=== PATIENT | female | born 1990 | race African-American/Black ===

== ENCOUNTER 2017-06-04 04:06 | Inpatient (IN) ==
[2017-06-04 04:56] LABS: Apearance,Urine Slightly Hazy (Clear); Bilirubin,Urine Negative (Negative); Blood, Urine Negative (Negative); Glucose,Urine (UA) Negative (Negative); Ketones,Urine Negative (Negative); Mucus,Urine Occasional /LPF (Occasional); Nitrite,Urine Negative (Negative); Protein,Urine Negative; RBC,Urine <1 /HPF (0-4); Squamous Epithelial Cell,Urine Occasional /HPF (0-10); Urine Color Straw (Yellow); Urine Specific Gravity 1.009 (1.001-1.035); Urine Urobilinogen < 2.0 EU/DL (0.2-1.0); WBC,Urine 1 /HPF (0-6)
[2017-06-04] MEDS ORDERED: LACTATED RINGERS 1,000 ML IV SCH ×2 (05:30→07:00)
[2017-06-04] MEDS ORDERED: BUTORPHANOL 2 MG/ML VIAL IV ONE (06:00)
[2017-06-04] MEDS ORDERED: ONDANSETRON 4 MG/2 ML VIAL IV ONE (06:00)
[2017-06-04 06:04] LABS: Eosinophils # 0.1 10*3/uL (0.0-0.87); Eosinophils % 0.8 % (0.00-10.9); Hemoglobin 10.8 GM/DL (12.0-16.0); Mean Corpuscular Hemoglobin 28 PG (27-34); Red Blood Count 3.93 MC/CUMM (3.8-5.5)
[2017-06-04 06:17] LABS: Basophils % 0.3 % (0.0-0.8); Hematocrit 32.1 VOL% (35.7-47.0); Immature Granulocytes % 0.7 %; Immature Granulocytes Absolute 0.04 #; Lymphocytes % 33.4 % (21.3-54.2); Mean Corpuscular HGB Conc 33.6 GM/DL (32-36); Mean Corpuscular Volume 81.7 FL (87-102); Mean Platelet Volume 14.6 FL (9.6-12.0); Monocytes # 0.6 10*3/uL (0.11-0.8); Monocytes % 9.9 % (1.7-12.7); Neutrophils # 3.3 10*3/uL (1.4-7.4); Neutrophils % 54.9 % (38.7-73.9); Red Cell Distribution Width 14.7 % (9.3-17.3)
[2017-06-04 06:20] LABS: Platelet Count 99 T/CUMM (130-400)
[2017-06-04 06:29] LABS: Platelet Estimate Decreased
[2017-06-04] MEDS ORDERED: MEPERIDINE 50 MG/1 ML VIAL IV PRN (06:34)
[2017-06-04] MEDS ORDERED: ONDANSETRON 4 MG/2 ML VIAL IV PRN ×2 (06:34→11:01)
[2017-06-04] MEDS ORDERED: ePHEDrine 50 MG/ML AMP IV PRN (06:35)
[2017-06-04] MEDS ORDERED: CITRIC ACID/SODIUM CITRATE 30 ML UDCUP PO ONE (06:35)
[2017-06-04] MEDS ORDERED: FAMOTIDINE 20 MG/2 ML VIAL IV ONE (06:35)
[2017-06-04] MEDS ORDERED: fentaNYL 2 MCG/ROPIV 0.2% EPID 150 ML EPIDURAL SCH (07:00)
[2017-06-04 07:14] LABS: Basophils % 0.2 % (0.0-0.8); Eosinophils # 0.1 10*3/uL (0.0-0.87); Eosinophils % 0.6 % (0.00-10.9); Hematocrit 33.2 VOL% (35.7-47.0); Hemoglobin 11.1 GM/DL (12.0-16.0); Immature Granulocytes % 0.6 %; Immature Granulocytes Absolute 0.05 #; Lymphocytes # 3.3 10*3/uL (1.4-4.0); Lymphocytes % 39.2 % (21.3-54.2); Mean Corpuscular HGB Conc 33.4 GM/DL (32-36); Mean Corpuscular Hemoglobin 28 PG (27-34); Mean Corpuscular Volume 82.2 FL (87-102); Mean Platelet Volume 13.9 FL (9.6-12.0); Monocytes # 0.9 10*3/uL (0.11-0.8); Monocytes % 10.9 % (1.7-12.7); Neutrophils # 4.1 10*3/uL (1.4-7.4); Neutrophils % 48.5 % (38.7-73.9); Platelet Count 104 T/CUMM (130-400); Red Blood Count 4.04 MC/CUMM (3.8-5.5); Red Cell Distribution Width 14.8 % (9.3-17.3); White Blood Count 8.4 T/CUMM (4-12)
[2017-06-04] MEDS ORDERED: BUTORPHANOL 2 MG/ML VIAL IV PRN (07:34)
[2017-06-04] MEDS ORDERED: OXYTOCIN/LR 20 UNIT/1,000 ML BAG IV SCH (09:30)
[2017-06-04] MEDS ORDERED: miSOPROStol 200 MCG TABLET ONE (09:58)
[2017-06-04] MEDS ORDERED: LIDOCAINE 1% 50 ML VIAL ONE (09:58)
[2017-06-04] MEDS ORDERED: METHYLERGONOVINE 0.2 MG/1 ML AMP ONE (09:59)
[2017-06-04] MEDS ORDERED: BISACODYL 10 MG SUPP RECTAL PRN (11:01)
[2017-06-04] MEDS ORDERED: WITCH HAZEL PADS 100/JAR TOP PRN (11:01)
[2017-06-04] MEDS ORDERED: RHO(D) IMMUNE GLOBULIN 300 MCG SYRINGE IM ONE (11:01)
[2017-06-04] MEDS ORDERED: OXYTOCIN/LR 20 UNIT/1,000 ML BAG IV ONE (11:01)
[2017-06-04] MEDS ORDERED: DIPH/TET/ACEL PERT BOOSTER VACCINE 0.5 ML VIAL IM ONE (11:01)
[2017-06-04] MEDS ORDERED: MEASLES/MUMPS/RUBELLA VACCINE 0.5 ML VIAL SUBCUT ONE (11:01)
[2017-06-04] MEDS ORDERED: BENZOCAINE 20%/MENTHOL 0.5% SPRAY 56 GM CAN TOP PRN (11:01)
[2017-06-04] MEDS ORDERED: HYDROCORTISONE 2.5% RECTAL CREAM 30 GM TUBE TOP PRN (11:01)
[2017-06-04] MEDS ORDERED: ACETAMINOPHEN 325 MG TABLET PO PRN (11:01)
[2017-06-04] MEDS ORDERED: LANOLIN 50% CREAM 0.3 OZ TUBE TOP PRN (11:01)
[2017-06-04] MEDS ORDERED: oxyCODONE/ACETAMINOPHEN 5-325 MG TABLET PO PRN (11:01)
[2017-06-04] MEDS: IBUPROFEN 800 MG TABLET PO PRN (16:12)
[2017-06-04] MEDS: oxyCODONE/ACETAMINOPHEN 5-325 MG TABLET PO PRN (16:13)
[2017-06-04] MEDS: DOCUSATE SODIUM 100 MG CAPSULE PO SCH (20:30)
[2017-06-05 05:46] LABS: Basophils % 0.4 % (0.0-0.8); Eosinophils # 0.1 10*3/uL (0.0-0.87); Eosinophils % 1.1 % (0.00-10.9); Hematocrit 28.2 VOL% (35.7-47.0); Hemoglobin 9.4 GM/DL (12.0-16.0); Immature Granulocytes % 0.5 %; Immature Granulocytes Absolute 0.04 #; Lymphocytes # 2.4 10*3/uL (1.4-4.0); Lymphocytes % 30.2 % (21.3-54.2); Mean Corpuscular HGB Conc 33.3 GM/DL (32-36); Mean Corpuscular Hemoglobin 27 PG (27-34); Mean Corpuscular Volume 82.2 FL (87-102); Monocytes # 0.8 10*3/uL (0.11-0.8); Monocytes % 9.4 % (1.7-12.7); Neutrophils # 4.7 10*3/uL (1.4-7.4); Neutrophils % 58.4 % (38.7-73.9); Platelet Count 75 T/CUMM (130-400); Red Blood Count 3.43 MC/CUMM (3.8-5.5); Red Cell Distribution Width 15.1 % (9.3-17.3)
[2017-06-05 06:18] LABS: Giant Platelets Few; Hypochromasia 1+; Lymphocytes 40 % (20-55); Ovalocytes Slight; Platelet Estimate Decreased; Segmented Neutrophils 55 % (50-85); Total Cells Counted 100
[2017-06-05] MEDS: IBUPROFEN 800 MG TABLET PO PRN (09:07)
[2017-06-05] MEDS: DOCUSATE SODIUM 100 MG CAPSULE PO SCH ×2 (09:07→21:33)
[2017-06-05] MEDS: oxyCODONE/ACETAMINOPHEN 5-325 MG TABLET PO PRN (09:08)
[2017-06-06 07:09] VITALS: BP 125/75
[2017-06-06] MEDS: DOCUSATE SODIUM 100 MG CAPSULE PO SCH (09:26)
[2017-06-06] MEDS: IBUPROFEN 800 MG TABLET PO PRN (09:28)
== END 2017-06-06 12:20 | disposition home or self-care (01) | DRG 775 ==
LOC: N.LDOUT 04:06 → N.LD 04:15 → N.OB 14:37
PROVIDERS: ADMIT Obstetrics & Gynecology; ATTEND Obstetrics & Gynecology